=== PATIENT | female | born 1975 | race Caucasian/White ===

== ENCOUNTER 2021-11-25 08:47 | Emergency (ER) | payer OTHER, SELFPAY ==
--- NOTE | ~2021-11-25 | XR_ITS ---
XR knee RT min 4V 11/25/2021 10:18 INDICATION: Right knee pain PROCEDURE: 4 views right knee COMPARISON: No prior studies for comparison. FINDINGS: Fracture, dislocation or subluxation is not identified. There is mild osteoarthritis. No si gnificant joint effusion. The soft tissues appear within normal limits. No foreign bodies are identi fied. IMPRESSION: 1: NO ACUTE BONE OR JOINT ABNORMALITY IDENTIFIED. Reviewed, dictated and finalized at location A. [facility] [employer]
[2021-11-25 08:58] VITALS: BP 140/78; PULSE 80; RESP 18; TEMP 36.4; O2SAT 99
--- NOTE | 2021-11-25 09:47 | ED.LOWEXIN ---
HPI - Extremity Injury (Lower) General Chief Complaint: Extremity Injury, Lower Stated Complaint: knee injury Time Seen by Provider: 11/25/21 09:37 Source: patient Mode of arrival: ambulatory (On crutches) Limitations: no limitations History of Present Illness HPI Narrative: This is a 46-year-old female that presents to the emergency department for right knee pain since last night. Reports she stepped down off the last step and felt a pop in the knee. Reports a similar injury a couple years ago for which she was told she had a meniscal tear and an orthopedic doctor. They decided not to do any surgical intervention at that time. The pain is worse with movement and relieved with rest. Reports decreased range of motion due to pain. Denies erythema, edema, or numbness. Review of Systems Review of Systems: CONSTITUTIONAL: Denies fever MUSCULOSKELETAL: Reports joint pain, and myalgia. NEUROLOGIC: Denies numbness All systems reviewed & are unremarkable except as noted in HPI and below PMFSH Past Medical History Medical History (Updated 11/25/21 @ 11:15 by Rosalina Blanco PA-C) History of depression Social History Social History (Updated 11/25/21 @ 09:49 by Rosalina Blanco PA-C) Substance use: never Exam Narrative: GENERAL: Well-appearing, well-nourished, and in no acute distress. HEAD: Normocephalic, atraumatic. EYES: EOMI. EXTREMITIES: Decreased active ROM in the right knee due to pain. No edema or obvious deformity. Normal DP pulses. Normal sensation SKIN: Warm, dry, no rash. NEURO: No focal deficits. Alert and oriented x3. PSYCH: Normal mood and affect Course Vital Signs Vital signs: Vital Signs Temperature 97.6 F 11/25/21 08:58 Pulse Rate 80 11/25/21 08:58 Respiratory Rate 18 11/25/21 08:58 Blood Pressure 140/78 11/25/21 08:58 Pulse Oximetry 99 11/25/21 08:58 Temperature 97.6 F 11/25/21 08:58 Pulse Rate 80 11/25/21 08:58 Respiratory Rate 18 11/25/21 08:58 Blood Pressure 140/78 11/25/21 08:58 Pulse Oximetry 99 11/25/21 08:58 MDM - Extremity Injury (Lower) MDM Narrative Medical decision making narrative: Patient presents to the emergency department for right knee pain after an injury last night. Reports history of previous meniscal tear to the same knee. She is neurovascularly intact. Right knee x-rays without acute osseous abnormalities. Patient placed in a knee immobilizer and instructed to use her crutches. She is to follow-up with orthopedics. She was given warnings to return to the ER Imaging Data Radiologist's impression: ITS Impressions Knee X-Ray 11/25/21 10:23 IMPRESSION: 1: NO ACUTE BONE OR JOINT ABNORMALITY IDENTIFIED. Critical Care Time Critical Care Time Critical Care Time: No Discharge Plan Discharge Clinical Impression: Acute internal derangement of knee Qualifiers: Laterality: right Qualified Code(s): M23.91 - Unspecified internal derangement of right knee Patient Disposition: Home, Self-Care Condition: Stable Instructions: Knee Pain (ED) Additional Instructions: Return to the emergency department if you experience fever, redness and swelling of your leg, numbness, or any other symptoms that are concerning to you Wear knee immobilizer and use crutches. No weight on the affected leg. Ice and elevate extremity. Pain medication as needed and directed. Follow up with orthopedics for further care. Follow-up/Referrals: Evens,MD Sathya [Primary Care Provider] - Nirav Suarez MD [Physician] - 3 Days
== END 2021-11-25 11:30 | disposition home or self-care (01) ==
PROVIDERS: Emergency Provider Emergency Medicine; PCP Internal Medicine
DX: M23.91 Unspecified internal derangement of right knee (principal)
CPT/HCPCS: 73564; 99283

== ENCOUNTER 2023-12-27 12:19 | Emergency (ER) | payer OTHER, SELFPAY ==
--- NOTE | 2023-12-27 12:25 | ED.URI ---
HPI - URI/Sore Throat General Chief Complaint: Upper Respiratory Infection Stated Complaint: Fever/Chills/Cough Time Seen by Provider: 12/27/23 12:25 Source: patient, RN notes reviewed and old records reviewed Mode of arrival: ambulatory Limitations: no limitations History of Present Illness HPI Narrative: 48-year-old female presents to the [facility] with complaints of fever, chills and a cough that started 1900 last night, 17 hours prior to arrival. Patient reports that she had a fever as high as 101. Has taken Mucinex cold and flu. Onset (ago): hour(s) (17) Treatments prior to arrival: cold medicine (Mucinex cold and flu) Related Data Home Medications Medication Instructions Recorded Confirmed sertraline 50 mg tablet 50 mg PO DAILY 07/05/23 07/05/23 Allergies Allergy/AdvReac Type Severity Reaction Status Date / Time codeine Allergy Severe Vomiting Verified 12/27/23 12:47 omicef Allergy Severe Diarrhea Uncoded 12/27/23 12:47 Review of Systems Review of Systems: All systems reviewed & are unremarkable except as noted in HPI and below Constitutional: Constitutional: Reports as per HPI Eyes: Eyes: Reports no additional eye complaints ENT: Reports system reviewed and no additional complaints, except as documented Cardiovascular: Cardiovascular: Reports no additional cardiovascular complaints, Denies chest pain and Denies dyspnea Respiratory: Respiratory: Reports as per HPI, Denies chest congestion, Reports cough and Denies dyspnea Gastrointestinal: Gastrointestinal: Reports no additional gastrointestinal complaints, Denies abdominal pain, Denies nausea and Denies vomiting Musculoskeletal: Musculoskeletal: Reports no additional musculoskeletal complaints Integumentary/Breasts: Skin/Breast: Reports system reviewed and no additional complaints, except as docu Neurologic: Reports system reviewed and no additional complaints, except as documented Psychiatric: Psychiatric: Reports no additional psychiatric complaints Allergic/Immunologic: Allergic/Immunologic: Reports no additional allergic/immunologic complaints PMFSH Past Medical History Medical History Encounter for routine gynecological examination (12/06/15) FNA right breast cyst -office - benign foam cells History of depression Surgical History Surgical History Delivery by section (~2011) rpt c/s Delivery by section (~2008) primary c/s baby coming out elbow first History of bunionectomy (03/01/14) lapidus bunionectomy, right foot Family History Family History Mother Hypertension CREST syndrome Social History Social History Smoking status: Never smoker Alcohol intake: never Substance use: never Substance use type: does not use Lack of Transportation: No Lack of Food: Never True Current Housing: I Have Housing Concerned About Future Housing: No Difficulty Paying Gas/Electric Bills: No Difficulty Paying for Meds: No Currently Unemployed: No Education: Master's Degree or Higher Difficulty w/ Childcare or Family Care: No Living arrangements: with family Occupation/Education: occupation Gender identity (if verbalized by the patient): Female Sexual Orientation (if Verbalized by the Patient): Straight or Heterosexual Comments At the time of my signature, I reviewed and agree with the nursing past medical, surgical, social, and family history. There is no relevant family history pertinent to the patient complaint. Exam Const: General: cooperative, healthy appearing, comfortable, no acute distress, well developed, alert and well nourished Nutritional Appearance: well nourished Orientation/consciousness: patient oriented x3 Limitations: no limitations HENMT: Head: normal to i
[2023-12-27 14:48] VITALS: BP 126/77; PULSE 87; RESP 18; TEMP 37.1; O2SAT 99
== END 2023-12-27 13:10 | disposition home or self-care (01) ==
PROVIDERS: Emergency Provider Nurse Practitioner; PCP Internal Medicine
DX: B34.9 Viral infection, unspecified (principal); J06.9 Acute upper respiratory infection, unspecified; R05.1 Acute cough; Z20.822 Contact with and (suspected) exposure to COVID-19; F32.A Depression, unspecified
CPT/HCPCS: 87426; 87804; 99213; G0463

== ENCOUNTER 2024-12-14 18:19 | Emergency (ER) | payer OTHER, SELFPAY ==
--- NOTE | ~2024-12-14 | XR_ITS ---
HISTORY: laterl/dorsal foot pain COMPARISON: None TECHNIQUE: 3 views of the left foot were performed FINDINGS: No acute fracture or dislocation is appreciated. Trace significant degenerative disease is noted. The base of the fifth metatarsal is intact. Small calcaneal spur is noted. Ossification of the insertion of the Achilles tendon is present. No significant soft tissue swelling is present. IMPRESSION: Trace degenerative disease, without acute fracture Reviewed, dictated and finalized at location A.
--- NOTE | 2024-12-14 18:20 | ED_ITS ---
HPI - Extremity Problem General Chief complaint: Extremity Injury, Lower Stated complaint: Left Leg Pain Time Seen by Provider: 12/14/24 18:20 Source: patient Mode of arrival: ambulatory Limitations: no limitations History of Present Illness HPI Narrative: Shreya is a 49-year-old female patient presenting to the clinic today with complaints of left foot pain/injury. She reports she stepped off a curb and inverted her left foot on Wednesday. The pain was a little bit better on Wednesday however the pain got worse today so that prompted her to come in. Is having pain to the dorsal and lateral foot with pain radiating into the ankle and calf. Related Data Home Medications ?Medication ?Instructions ?Recorded ?Confirmed ?Last Taken ?Type sertraline 50 mg tablet 50 mg PO DAILY 07/05/23 11/21/24 Unknown History Allergies Allergy/AdvReac Type Severity Reaction Status Date / Time codeine Allergy Severe Vomiting Verified 12/14/24 18:33 omicef Allergy Severe Diarrhea Uncoded 12/14/24 18:33 Review of Systems Review of Systems: Pertinent positives per HPI. Patient denies any fever, chills, rash, headache, visual changes, dizziness, cough, shortness of breath, chest pain, palpitations, nausea, vomiting, diarrhea, constipation, abdominal pain, or any urinary issues. [facility] Past Medical History Medical History Encounter for routine gynecological examination (12/06/15) FNA right breast cyst -office - benign foam cells History of depression Surgical History Surgical History Delivery by section (~2008) primary c/s baby coming out elbow first Delivery by section (~2011) rpt c/s History of bunionectomy (03/01/14) lapidus bunionectomy, right foot Family History Family History Mother Hypertension CREST syndrome Social History Social History Smoking status: Never smoker Second hand tobacco smoke exposure: No Alcohol intake: never Substance use: never Substance use type: does not use Do You Feel Safe in your Home?: Yes Lack of Transportation: No Lack of Food: Never True Current Housing: I Have Housing Concerned About Future Housing: No Difficulty Paying Gas/Electric Bills: No Difficulty Paying for Meds: No Currently Unemployed: No Education: Master's Degree or Higher Difficulty w/ Childcare or Family Care: No Living arrangements: with family Additional living arrangements comments: Occupation/Education: occupation 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 There is no relevant family history pertinent to the patient complaint. Exam Narrative: General: Well-developed, well nourished, in no apparent distress Head: Normocephalic, atraumatic. Cardio: Regular rate and rhythm, s1 and s2 normal, no murmur appreciated. Resp: Clear to auscultation bilaterally, no rhonchi, rales, wheezing or rubs. Musculoskeletal: No deformity, tender to palpation over the lateral left foot and dorsal left foot, grossly normal range of motion, no pain with dorsal flexion and plantar flexion, no pain with valgus and varus testing, pain with bearing weight, muscle strength strong and equal, peripheral pulse strong, no edema, no cyanosis, normal gait and station Course Course Emergency Course: Portions of this record may have been created with voice recognition software. Level of Care: Express Care Visit Vital Signs Vital signs: Vital Signs Temperature 36.7 C 12/14/24 18:28 Pulse Rate 97 12/14/24 18:28 Respiratory Rate 16 12/14/24 18:28 Blood Pressure 162/84 H 12/14/24 18:28 Pulse Oximetry 100 12/14/24 18:28 Temperature 36.7 C 12/14/24 18:28 Pulse Rate 97 12/14/24 18:28 Respiratory Rate 16 12/14/24 18:28 Blood Pressure 162/84 H 12/14/24 18:28 Pulse Oximetry 100 12/14/24 18:28 Vital signs reviewed MDM - Extremity (Nontraumatic) MDM Narrative Medical decision making narrative: At the time of visit patient is resting comfortably on the exam table. Patient appears to be nontoxic. Diagnostics: X-ray of the left foot was performed and negative for any sign of fracture or malalignment. Plan: I suspect patient has left foot sprain. Supportive measures were discussed with the patient and they voiced understanding discharge instructions and agrees to treatment plan. Return precautions reviewed Differential Diagnosis Differential diagnosis: Likely other (Foot sprain, foot fracture, tendinitis) Imaging Data Radiologist's impression: ITS Impressions Foot X-Ray 12/14/24 19:44 IMPRESSION: Trace degenerative disease, without acute fracture Discharge Plan Discharge Clinical Impression: Foot sprain Qualifiers: Encounter type: initial encounter Laterality: left Qualified Code(s): S93.602A - Unspecified sprain of left foot, initial encounter Patient Disposition: Home, Self-Care Condition: Stable Instructions: Antibiotic Form, Foot Sprain (ED) Additional Instructions: Rest, ice, elevate, and wear alva wrap as directed Tylenol/motrin for pain as discussed. Gradually bear weight No running or sports until healed. Follow up with your PCP if symptoms persist more than 1 week. Patient Language: Romanian Prescriptions: No Action sertraline 50 mg tablet 50 mg PO DAILY Follow-up/Referrals: UNKNOWN,DOCTOR [Non-Staff] - Time of Disposition: 19:58 Quality NIHSS Nursing Documentation ED NIHSS nursing documentation: reviewed/agree
[2024-12-14 18:28] VITALS: BP 162/84; PULSE 97; RESP 16; TEMP 36.7; O2SAT 100
== END 2024-12-14 20:01 | disposition home or self-care (01) ==
PROVIDERS: Emergency Provider Nurse Practitioner Family
DX: S93.602A Unspecified sprain of left foot, initial encounter (principal); X50.9XXA Other and unspecified overexertion or strenuous movements or postures, initial encounter; F32.A Depression, unspecified
CPT/HCPCS: 73630; 99213; G0463